=== PATIENT | female | born 1995 | race African-American/Black ===

== ENCOUNTER → 2016-11-06 | Outpatient (CLI) | payer MEDICAID ==
[~2016-11-06] MED LIST: BENTYL10 M1 PO; MIRALAX PO255 GM/BOT PO; ORTHO EVRA1 TD2 TD
[2016-11-06 10:14] LABS: HEMOGLOBIN 12.6 g/dL (12.2-16.2); LYMPH # 1.6 K/mm3 (0.7-4.5); LYMPH % 31.9 % (10-50.0)
[2016-11-06 11:18] LABS: ABO BLOOD TYPE A; RH BLOOD TYPE POSITIVE
[2016-11-07 06:37] LABS: Rapid Plasma Reagin, Quant Non Reactive (NonRea<1:1)
[2016-11-07 08:41] LABS: HBsAg Screen Negative (Negative); HIV Screen 4th Generation wRfx Non Reactive (Non Reactive); HSV 2 IgG, Type Spec <0.91 index (0.00-0.90); Hep A Ab, IgM Negative (Negative); Hep B Core Ab, IgM Negative (Negative); Hep C Virus Ab <0.1 (0.0-0.9)
[2016-11-07 16:36] LABS: HSV, IgM I/II Combination 1.69 Ratio (0.00-0.90)
== END ==
LOC: LAB 09:51
PROVIDERS: Nurse Practitioner Obstetrics & Gynecology
DX: Z34.80 Encounter for supervision of other normal pregnancy, unspecified trimester (principal)
CPT/HCPCS: G0432